=== PATIENT | female | born 1975 | race Caucasian/White ===

== ENCOUNTER 2022-06-14 11:12 | Emergency (ER) | payer SELFPAY ==
[2022-06-14 11:18] VITALS: BP 126/82; PULSE 112; RESP 18; TEMP 36.4; O2SAT 97
--- NOTE | 2022-06-14 11:30 | DI.RAD_ITS ---
Exam(s) XR WRIST RT COMPLETE EXAM: XR WRIST RT COMPLETE CLINICAL HISTORY: contusion. TECHNIQUE: 2D digital imaging was performed. Three views. COMPARISON: No exams were available for comparison FINDINGS: BONES: No acute fracture is present. No bony destructive lesion is seen. JOINTS: The carpal bones are normally aligned. SOFT TISSUE: Normal. IMPRESSION: Unremarkable radiographs of the right wrist. DATA REPOSITORY: RADIATION DOSE DELIVERED:
--- NOTE | 2022-06-14 11:33 | ED.GENADUL_ITS ---
Discharge Plan Disposition Patient Disposition: Home Discharge Details Clinical Impression: Contusion of left wrist Primary Care Provider: Unknown,Unknown ED Provider: Silke Mcneal Discharge Instructions Instructions: Contusion in Adults (ED) Additional Instructions: Ice, ibuprofen and Tylenol as needed for pain Recheck in 1 week with persistent discomfort Use as tolerated You may wear your splint for discomfort Return earlier should you have new or worsening complaints Stand Alone Forms: Work Release Discharge Data Discharge Date/Time-TO BE ENTERED AT DEPARTURE: 06/14/22 13:10 Medical Decision Making This 46-year-old patient presents with right wrist pain after injury last evening, no evidence of fracture on x-ray per radiologist interpretation and my review Placed in a Velcro wrist splint and referred back to primary care physician, repeat x-ray in 1 week with persistent pain recommended Work note with restrictions supplied Return precautions reviewed and patient expressed understanding HPI General Date/Time Provider Initiated Documentation: 06/14/22 11:25 . HPI Narrative: This 46-year-old female presents with right wrist pain after slamming her wrist accidentally in conference room door. This happened last evening. She denies any additional injuries. General Stated Complaint: Orthopedic CE: 4 PFSH All Active Problems (Updated 06/14/22 @ 12:50 by SANDRA Gee) Contusion of left wrist (Acute) Social History Smoking/Tobacco Use Status: Never Smoking risk assessment performed?: Yes Alcohol Intake: current Alcohol Intake frequency: holidays/special occasions only Drug use: Never Substance use type: does not use Do you feel safe at home: Yes Do you feel safe in your relationship?: Yes Exam Extrem Other: Right wrist with ecchymosis, swelling, tenderness, mildly decreased range of motion, neurovascularly intact, no tenderness to hand or elbow on affected side Course Vital Signs Vital signs: Vital Signs Temperature 36.4 C L 06/14/22 11:18 Pulse 112 H 06/14/22 11:18 Respiratory Rate 18 06/14/22 11:18 Blood Pressure 126/82 06/14/22 11:18 Pulse Oximetry 97 06/14/22 11:18 Temperature 36.4 C L 06/14/22 11:18 Temperature Source Tympanic 06/14/22 11:18 Pulse 112 H 06/14/22 11:18 Respiratory Rate 18 06/14/22 11:18 Respiratory Effort Normal 06/14/22 11:24 Blood Pressure 126/82 06/14/22 11:18 Blood Pressure Position Supine 06/14/22 11:18 Pulse Oximetry 97 06/14/22 11:18 Oxygen Delivery Method Room Air 06/14/22 11:18 Oxygen Flow Rate 0 06/14/22 11:18 Pain Level 7 06/14/22 11:18
[2022-06-14 13:01] VITALS: BP 132/80; PULSE 85; RESP 16; O2SAT 98
== END 2022-06-14 13:10 | disposition home or self-care (01) ==
PROVIDERS: Emergency Provider Physician Assistant
DX: S60.212A Contusion of left wrist, initial encounter (principal); X58.XXXA Exposure to other specified factors, initial encounter
CPT/HCPCS: 29125; 99283; 73110